=== PATIENT | female | born 1995 | race Caucasian/White ===

== ENCOUNTER 2016-07-21 01:49 | Inpatient (IN) | payer MEDICAID ==
[~2016-07-21] VITALS: Ht 165.1 cm; Wt 76.8 kg
[2016-07-21] MEDS ORDERED: PRENATAL COMPLE1 TAB PO (02:26)
[2016-07-21] MEDS ORDERED: TERAZOL 7 VAGIN45 GM VG (02:28)
[2016-07-21] MEDS ORDERED: FLAGYL250 MG PO (02:29)
[2016-07-21 03:01] LABS: HEMOGLOBIN 10.1 g/dL (12-16); MCH 25.1 pg (26.0-34.0); MCHC 30.6 g/dL (31.0-37.0); MCV 82.1 fL (80.0-100.0); MEAN PLATELET VOLUME 12.3 fL (7.4-10.4); RBC 4.02 10x6/uL (4.00-5.40); RDW 15.2 % (11.5-14.5); WBC 13.4 10x3/uL (4.8-10.8)
[2016-07-21 03:08] LABS: APPEARANCE CLEAR (CLEAR); BILIRUBIN NEGATIVE (NEGATIVE); COLOR YELLOW (YELLOW); GLUCOSE NEGATIVE (NEGATIVE); KETONE NEGATIVE (NEGATIVE); LEUKOCYTE ESTERASE NEGATIVE (NEGATIVE); NITRITE NEGATIVE (NEGATIVE); PROTEIN NEGATIVE (NEGATIVE); UROBILINOGEN NORMAL (NORMAL)
[2016-07-21 04:22] VITALS: BP 110/74; Ht 165.1 cm; Wt 76.8 kg
--- NOTE | 2016-07-21 19:11 | NUR ---
VISITOR AT BEDSIDE. PAIN MEDS GIVEN ORDERED. FUNDUS FIRM U/1 . LOCHIA RUBRA MOD. ICE CAP TO PERINEAL AREA. BREATH SOUNDS CLEAR. PT. STATES SHE HAS SLIGHT NUMBNESS IN LEGS ALTHOUGH GOOD ROM. IV OF LR NOTED IN RT HAND AREA INFUSING AT 50CC/HR. FOOD BROUGHT TO PATIENT FROM OUTSIDE. KEYANAI HAS BEEN IN ROOM TALKING WITH PT.
[2016-07-21 19:13] VITALS: BP 114/56
--- NOTE | 2016-07-21 19:20 | NUR ---
INFORMED PT. OF POC OF GETTING UP TO BATHROOM AND THEN CHANGING ROOM. PT. STATES UNDERSTANDING. ABLE TO LIFT BUTTOCKS OFF BED WITH BED FLAT AGAINST BED. DENIES ANY NUMBNESS AT THIS TIME. OFF JACKAROO AND IV SALINE LOCKED. PT. STOOD AT BEDSIDE WITH MINIMAL ASSISTANCE AND AMBULATED TO BATHROOM WITHOUT ASSISTANCE AND STEADY GAIT. VOIDED. C/O SOME RECTAL PRESSURE. REASSURED PT. THAT WAS NORMAL POST DELIVERY. SELF BRITTANY CARE INSTRUCTIONS GIVEN TO PT. AND PT. STATED VERBAL UNDERSTANDING AND GAVE DEMONSTATION ON USE. USE OF EPIFOAM, DERMOPLAST AND TUCKS DISCUSSED WITH PT. AND ASSISTED PT. WITH USE. PT STATED UNDERSTANDING TO ALL INSTRUCTIONS. TRANSFERRED TO [id number].
--- NOTE | 2016-07-21 19:30 | NUR ---
PT. ORIENTED TO ROOM, CALL LIGHT, BED CONTROLS, AND TEMP CONTROL. PT. RELATES THAT SHE IS PAIN FREE SINCE VOIDING. CALL LIGHT WITHIN REACH. SIDE RAILS UP X 2. PT. INQUIRING WHEN SHE CAN SHOWER. INFORMED THAT SHE COULD SHOWER HER NEXT TIME UP TO VOID BUT CAUTIONED THAT SHE SHOULD TAKE A TEPID SHOWER AND NOT A HOT SHOWER. REASONS GIVEN. PT. STATES UNDERSTANDING. LINENS FOR SHOWER PROVIDED. INFORMED PT. THAT THIS NURSE WOULD BE GLAD TO HELP HER WITH ANYTHING THAT SHE NEEDS AND JUST TO USE CALL LIGHT. PT. CHEERFUL AND STATES UNDERSTANDING. ICE WATER PROVIDED.
--- NOTE | 2016-07-21 20:34 | NUR ---
PT. REPORTS THAT SHE IS PAIN FREE. SITTING UP IN BED ON PHONE. DENIES ANY NEEDS.
--- NOTE | 2016-07-21 20:41 | NUR ---
ICE CAP GIVEN TO PT. AND ASSISTED ON PLACING ON PERINEAL AREA.
--- NOTE | 2016-07-21 21:38 | NUR ---
UP TO BATHROOM TO SHOWER. ASSISTED PT. TO ADJUST SHOWER TEMP. FAMILY IN ROOM HOLDING INFANT.
--- NOTE | 2016-07-21 22:08 | NUR ---
PT. SITTING ON SIDE OF BED. DENIES ANY DISCOMFORT. STATES SHE DID WELL WITH SHOWER. STATES THAT SHE HAS CHANGED INTO OWN CLOTHES AND ASKING IF THAT WAS OK. INFORMED PT. HER OWN CLOTHES WERE FINE. BABY IN ROOM FOR . DENIES ANY NEEDS. VISITORS AT BEDSIDE.
--- NOTE | 2016-07-21 23:40 | NUR ---
INFANT RETURNED TO [facility]. PT. STATES SHE DESIRES TO SLEEP. LIGHTS IN ROOM DIMMED PER PT. DENIES ANY PAIN. SIDE RAILS UP X 2. DENIES ANY NEEDS. PT. CHEERFUL.
--- NOTE | 2016-07-22 01:10 | NUR ---
LYING ON RT SIDE WITH RESPIRATIONS REGULAR.
--- NOTE | 2016-07-22 02:30 | NUR ---
PT. REQUESTED THIS NURSE TO ROOM TO WATCH WHILE SHE WENT TO THE BATHROOM. PT. UP TO BATHROOM AND VOIDED. SELF BRITTANY CARE DONE PER PT. DENIES ANY PAIN AT THIS TIME. STATES IS DOING WELL WITH .
--- NOTE | 2016-07-22 04:10 | NUR ---
PT. SITTING UP IN BED EATING. INFANT IN OPEN CRIB SLEEPING AT BEDSIDE. PT. REQUESTED INFANT RETURNED TO NBN. PT. DENIES ANY PAIN OR NEEDS AT THIS TIME.
[2016-07-22 06:15] LABS: HEMATOCRIT 28.6 % (36.0-48.0); HEMOGLOBIN 8.8 g/dL (12-16); MCHC 30.8 g/dL (31.0-37.0); MCV 81.3 fL (80.0-100.0); MEAN PLATELET VOLUME 11.7 fL (7.4-10.4); RBC 3.52 10x6/uL (4.00-5.40); RDW 15.2 % (11.5-14.5)
--- NOTE | 2016-07-22 06:16 | NUR ---
ROUNDS MADE. PT RESTING WITH EYES CLOSED. RESPIRATIONS REGULAR, NO S/S OF DISTRESS NOTED. PT LYING ON RIGHT SIDE. CL/PHONE WITHIN REACH. BED IN LOW POSITION WITH UPPER SIDE RAILS RAISED X2.
--- NOTE | 2016-07-22 06:20 | NUR ---
INFANT TO MOTHER FOR FEEDING PER N STAFF.
[2016-07-22 07:07] VITALS: BP 106/75
--- NOTE | 2016-07-22 07:16 | NUR ---
ASSUMED CARE OF THIS PATIENT. SHIFT ASSESSMENT COMLETED. NO REQUESTS AT THIS TIME. TO NURSERY FOR GROCERY SPECIALIST. CALL LIGHT IN REACH. TO CALL WHEN READY FOR SHOWER.
[2016-07-22 07:21] LABS: RAPID PLASMA REAGIN Non Reactive (Non Reactive)
--- NOTE | 2016-07-22 08:14 | NUR ---
LAYING ON RIGHT SIDE, PLANS NAP AT THIS TIME. IN NURSERY, CALL LIGHT IN REACH.
--- NOTE | 2016-07-22 09:25 | NUR ---
COMPLETED SHOWER PER SELF. ASKED IF SALINE LOCK CAN COME OUT. INSTRUCTED THAT WE NEED TO WAIT TIL MD REVIEWS H&H THIS MORNING, PRIOR TO DC. HBG 8.8/HCT 28.6/193. VERBALIZED UNDERSTANDING. NO OTHER REQUESTS AT THIS TIME.
--- NOTE | 2016-07-22 09:56 | NUR ---
REQUESTED MOTRIN FOR ABDOMINAL CRAMPING 10/18. MOTRIN 600 MG GIVEN PO. INSTRUCTED IF NOT HELPING THERE ARE ALSO OTHER PAIN MANAGEMENT OPTIONS. VERBALIZED UNDERSTANDING.
--- NOTE | 2016-07-22 10:53 | NUR ---
SITTING UP IN ROCKING CHAIR. DR RAMESH VISITED. DESIRED SALINE LOCK DC'D. REMOVED WITHOUT DIFFICULTY, TIP INTACT. 2/10 LOW ABDOMINAL CRAMPING AT THIS TIME. NO REQUESTS. ANTICIPATES DC HOME TOMORROW.
--- NOTE | 2016-07-22 12:41 | NUR ---
SITTING ON BED. VISITORS AND IN ROOM. DENIES NEEDING ANYTHING AT THIS TIME. INSTRUCTED TO CALL RN PRN. VERBALIZED UNDERSTANDING.
--- NOTE | 2016-07-22 14:14 | NUR ---
SITTING UP ON COUCH. VISITORS AND INFANT IN ROOM. FRESH ICE WATER GIVEN. NO REQUESTS OR COMPLAINTS AT THIS TIME.
--- NOTE | 2016-07-22 15:35 | NUR ---
SITTING UP IN BED . FAMILY VISITORS IN ROOM. DENIES NEEDING ANYTHING AT THIS TIME. TO CALL IF ANYTHING IS NEEDED. VERBALIZED UNDERSTANDING.
--- NOTE | 2016-07-22 17:18 | NUR ---
SITTING ON EDGE OF BED EATING DINNER. VISITORS AND IN ROOM. DENIES NEEDING ANYTHING. CALL LIGHT IN REACH.
--- NOTE | 2016-07-22 17:57 | NUR ---
DIRTY LINEN AND GARBAGE REMOVED FROM ROOM. 100% DINNER EATEN, TRAY REMOVED. NO ADDITIONAL REQUESTS. VISITORS AND INFANT IN ROOM. TO CALL IF ANYTHING IS NEEDED.
--- NOTE | 2016-07-22 19:11 | NUR ---
PT BREAST FEEDING INFANT AT THIS TIME. REQUESTS THAT ASSESSMENT BE COMPLETED WHEN SHE FINISHES NURSING INFANT. ICE WATER GIVEN TO PATIENT PER REQUEST. BED IN LOW POSITION, CL/PHONE WITHIN REACH. UPPER SIDE RAILS RAISED X2. DENIES ADDITIONAL NEEDS AT THIS TIME.
--- NOTE | 2016-07-22 19:56 | NUR ---
SHIFT ASSESSMENT COMPLETED. VSS. FUNDUS FIRM U2, SMALL AMT RUBRA LOCHIA TO PERIPAD, NO CLOTS NOTED. PT REPORTS THAT BLEEDING HAS BEEN "LIGHT" TODAY. BOWEL SOUNDS ACTIVE X4 QUADRANTS, REPORTS THAT SHE HAD A SMALL BM TODAY. PAIN 5-6/10, REQUESTED TO TAKE MOTRIN AND PERCOCET TOGETHER D/T INTERMITTENT ABD CRAMPING AND ACHING/BURNING TO PERINUM. PT VERBALIZED UNDERSTANDING OF TUX, DERMAPLAST, AND EPIFOAM. EDUCATED ON LOCHIA DURING PP PERIOD (AMT/DURATION/APPEARANCE), S/S OF INFECTION/COMPLICATIONS TO REPORT, AND IMPORTANCE OF HAVING NOTHING IN THE VAGINAL TRACT FOR 6 WEEKS OR UNTIL CLEARED BY MD. PT VERBALIZED UNDERSTANDING AND DENIED QUESTIONS. DENIES NEEDS AT THIS TIME. SITTING UP IN BED AT THIS TIME BONDING WITH . WILL CONT TO MONITOR AND ASSIST PRN.
[2016-07-22 20:01] VITALS: BP 128/67
--- NOTE | 2016-07-22 20:40 | NUR ---
PAIN REASSESSMENT COMPLETED. PT DENIES PAIN AT THIS TIME. MILK OF MAG GIVEN PER ORDERS. DISCUSSED MILK OF MAG USES AND SIDE EFFECTS, VERBALIZED UNDERSTANDING. PT STATES THAT SHE IS HUNGRY AND REQUESTED SNACK. SANDWICH TRAY AND CRANBERRY JUICE GIVEN PER REQUEST. DENIES ADDITIONAL NEEDS AT THIS TIME. INFANT IN ROOM IN CRIB.
--- NOTE | 2016-07-22 21:33 | NUR ---
PT REQUEST MORE TUX, EPIFOAM AND DERMAPLAST STATING THAT SHE IS ALMOST OF ALL OF THEM. GIVEN PER REQUEST AND PER ORDERS. REINFORCED INSTRUCTION TO ONLY USE WITH VOIDING AND 1-2 TUX PADS AND SMALL AMTS EPIFOAM AND DERMAPLAST, VERBALIZED UNDERSTANDING. PT CURRENTLY SITTING IN BED BREAST FEEDING . QUESTIONS REGARDING BREAST FEEDING ANSWERED. DENIES ADDITIONAL NEEDS AT THIS TIME. BED IN LOW POSITION WITH UPPER SIDE RAILS RAISED X2. CL/PHONE WITHIN REACH.
--- NOTE | 2016-07-22 22:52 | NUR ---
ROUNDS MADE. PT SLEEPING AT THIS TIME. RESPIRATIONS REGULAR, NO S/S OF DISTRESS NOTED. INFANT IN NBN AT THIS TIME. WILL CONT TO MONITOR. CL/PHONE WITHIN REACH. BED IN LOW POSITION WITH UPPER SIDE RAILS RAISED X2.
--- NOTE | 2016-07-23 00:01 | NUR ---
ROUNDS MADE. PT SITTING UP IN BED BONDING WITH INFANT. REPORTS THAT INFANT JUST FINISHED NURSING. DENIES NEEDS AT THIS TIME. PAIN 0/10. REPORTS THAT SHE HAS VOIDED X2 THIS SHIFT WITHOUT DIFFICULTY.
--- NOTE | 2016-07-23 02:01 | NUR ---
PT RESTING WITH EYES CLOSED. RESPIRATIONS REGULAR, NO S/S OF DISTRESS NOTED. IN CRIB AT BEDSIDED SLEEPING, RESPIRATIONS REGULAR, NO S/S OF ACUTE DISTRESS NOTED. BED IN LOW POSITION, CL/PHONE WITHIN PATIENT REACH. UPPER SIDE RAILS RAISED X2.
--- NOTE | 2016-07-23 04:08 | NUR ---
ROUNDS MADE. PT COMPLETING BREAST FEEDING OF . STATES THAT HE NURSED FOR 45 MINUTES. REQUESTED BE TAKEN TO NBN SO THAT SHE COULD TRY TO SLEEP UNTIL NEXT FEEDING. DENIES NEEDS AT THIS TIME. ICE WATER GIVEN. BED IN LOW POSITION WITH UPPER SIDE RAILS RAISED X2. CL/PHONE WITHIN REACH.
--- NOTE | 2016-07-23 06:10 | NUR ---
ROUNDS MADE. PT RESTING WITH EYES CLOSED. RESPIRATIONS REGULAR, NO S/S OF DISTRESS. BED IN LOW POSITION. CL/PHONE WITHIN REACH. UPPER SIDE RAILS X2.
--- NOTE | 2016-07-23 07:00 | NUR ---
ASSUMED CARE OF THIS PATIENT. SITTING UP IN BED . WILL COMPLETE SHIFT ASSESSMENT AFTER AND BREAKFAST. DENIES NEEDING ANYTHING AT THIS TIME. FRESH WATER GIVEN, SIDE RAILS UP X 2, CALL LIGHT IN REACH.
--- NOTE | 2016-07-23 07:33 | NUR ---
UP TO SHOWER AT THIS TIME. PARTIAL LINEN CHANGE COMPLETED. WITH NURSERY RN.
[2016-07-23 07:56] VITALS: BP 117/67
--- NOTE | 2016-07-23 08:00 | NUR ---
SHIFT ASSESSMENT COMPLETED. HAS SOME NIPPLE SORENESS, DISCUSSED CAUSES, RELIEF MEASURES. DECLINES MEDICATION AT THIS TIME. VERBAL AND WRITTEN INFORMATION GIVEN ON BREASTCARE, NIPPLE SORENESS AND TDAP. PT IS CONSIDERING TDAP PRIOR TO DC. NO CURRENT REQUESTS.
--- NOTE | 2016-07-23 09:40 | NUR ---
SITTING SEMI-FOWLERS POSITION. DESIRES TO REST, LIGHTS OFF PER PATIENT REQUEST. SLEEPING IN CRIB NEXT TO BED, RESP EVEN. SIDE RAILS UP X 2, CALL LIGHT IN REACH. TO CALL IF ANYTHING IS NEEDED. VERBALIZED UNDERSTANDING.
--- NOTE | 2016-07-23 10:50 | NUR ---
LAYING IN BED WITH LIGHTS ON LOW. RESTING, DENIES NEEDING ANYTHING. INFANT ASLEEP IN CRIB WITH PACIFIER IN MOUTH, RESP EVEN.
--- NOTE | 2016-07-23 11:10 | NUR ---
DR RAMESH VISITED. ANTICIPATE DC HOME WITH INFANT TODAY.
--- NOTE | 2016-07-23 11:44 | NUR ---
SITTING ON EDGE OF BED EATING LUNCH. VISITOR AND IN ROOM. DESIRES TDAP AFTER READING TDAP INFORMATION.
--- NOTE | 2016-07-23 12:44 | NUR ---
ADACEL 0.5 ML GIVEN IM I LEFT DELTOID. FINISHED LUNCH. VISITOR IN ROOM WITH . NO REQUESTS AT THIS TIME.
--- NOTE | 2016-07-23 14:52 | NUR ---
COMPLETED DISCHARGE EDUCATION INCLUDING ROUTINE PP CARE, PP DEPRESSION, S&S INFECTION, SITZ BATH, BREAST CARE, MEDICATION ADMINISTRATION AND FOLLOW-UP. ASKED ABOUT TYPE OF LACERATION SHE HAD. DISCUSSED DEGREES OF LACERATION WITH PT. VERBALIZED UNDERSTANDING. WILL DC HOME WHEN DISCHARGED.
--- NOTE | 2016-07-23 16:30 | NUR ---
FINAL DC TEACHING COMPLETED. HAS PRESCRIPTIONS, SITZ BATH AND WRITTEN INSTRUCTIONS. DENIES NEEDING ANYTHING. DRESSED AND READY TO GO. WAITING ON DC. WILL DC TO CAR VIA WHEELCHAIR WHEN INFANT DC'D. VISITORS IN ROOM.
--- NOTE | 2016-07-23 17:15 | NUR ---
DC'D TO CAR VIA WHEELCHAIR WITH FAMILY. IN CARSEAT. ALL BELONGS REMOVED FROM ROOM.
--- NOTE | 2016-08-30 07:19 | OP ---
PATIENT NAME: BRENDEN RESENDEZ MEDICAL RECORD: [id number] :96 LOCATION:[id number] ADMISSION DATE:07/21/16 SURGEON: RODRIGO RAMESH MD DATE OF OPERATION: 07/21/2016 Delivery Note Spontaneous vaginal delivery of male infant weighing 8 pounds 2 ounces, Apgars 4, 7 and 9 at 1, 5, and 10 minutes. Tight nuchal cord, required ligation prior to delivery of the thorax. Epidural anesthesia. Spontaneous delivery of intact-appearing placenta. Estimated blood loss 400 cc. Second degree midline laceration and first degree labial laceration repaired using 2-0 chromic suture and 800 mcg of Cytotec placed in the rectal vault to treat moderate uterine atony successfully. TRANSINT:[id number] Voice Confirmation ID: [id number] DOCUMENT ID: [id number] 08/15/2016, Edited for account number, dmm. RODRIGO RAMESH MD at [id number] CC: [id number] DICTATION DATE: 07/21/161715 SODA DIALYZER: 07/21/162000 DIS IN 07/23/16 [facility] [address] [place] [address]
== END 2016-07-23 17:15 | disposition home or self-care (01) | DRG 775 ==
LOC: D.LDO 01:49 → D.LD 02:02
PROVIDERS: Obstetrics & Gynecology; ADMIT Specialist
PROC: 10E0XZZ Delivery of Products of Conception, External Approach (ICD-10-PCS; principal; 2016-07-21)
PROC: 0KQM0ZZ Repair Perineum Muscle, Open Approach (ICD-10-PCS; 2016-07-21)
PROC: 10907ZC Drainage of Amniotic Fluid, Therapeutic from Products of Conception, Via Natural or Artificial Opening (ICD-10-PCS; 2016-07-21)
DX: O99.824 Streptococcus B carrier state complicating childbirth (principal); Z3A.39 39 weeks gestation of pregnancy; Z37.0 Single live birth; O75.89 Other specified complications of labor and delivery; R00.1 Bradycardia, unspecified; Z23 Encounter for immunization; O70.1 Second degree perineal laceration during delivery

== ENCOUNTER 2018-03-08 13:23 | Emergency (ER) | payer MEDICAID ==
[~2018-03-08] VITALS: Ht 165.1 cm; Wt 68.2 kg
[~2018-03-08 13:23] MED LIST: FLAGYL250 MG PO; PRENATAL COMPLE1 TAB PO; TERAZOL 7 VAGIN45 GM VG
[2018-03-08 13:26] VITALS: Ht 165.1 cm; Wt 68.2 kg
[2018-03-08 14:05] LABS: APPEARANCE HAZY (CLEAR); COLOR YELLOW (YELLOW)
[2018-03-08 14:06] LABS: BILIRUBIN NEGATIVE (NEGATIVE); GLUCOSE NEGATIVE (NEGATIVE); KETONE NEGATIVE (NEGATIVE); NITRITE NEGATIVE (NEGATIVE); PROTEIN TRACE mg/dL (NEGATIVE); UROBILINOGEN NORMAL (NORMAL)
[2018-03-08 14:07] LABS: BACTERIA MANY /hpf (NONE SEEN); EPITHELIAL CELLS 0-5 /hpf (0-5); RED CELLS - URINE 0-5 /hpf (0-5)
[2018-03-08 14:08] LABS: AMORPHOUS SEDIMENT <1+ /lpf (NONE SEEN); MUCUS <1+ /lpf (NONE SEEN)
[2018-03-08 14:11] LABS: BASOPHILS 0.2 % (0-2); HEMATOCRIT 41.6 % (36.0-48.0); HEMOGLOBIN 13.8 g/dL (12-16); IMMATURE GRANULOCYTES 0.2 % (0-5); LYMPHOCYTES 20.2 % (15-50); MCH 29.7 pg (26.0-34.0); MCHC 33.2 g/dL (31.0-37.0); MCV 89.7 fL (80.0-100.0); MEAN PLATELET VOLUME 11.5 fL (7.4-10.4); MONOCYTES 6.3 % (2-11); NEUTROPHILS 71.1 % (40-80); RBC 4.64 10x6/uL (4.00-5.40); RDW 12.8 % (11.5-14.5); WBC 11.9 10x3/uL (4.8-10.8)
[2018-03-08 14:12] LABS: PLATELET COUNT 242 10x3/uL (130-400)
[2018-03-08 14:16] LABS: ALKALINE PHOSPHATASE 74 U/L (46-116); ALT (SGPT) 19 U/L (10-68); AMYLASE - SERUM 43 U/L (25-115); BILIRUBIN - TOTAL 0.59 mg/dL (0.2-1.3); CALC OSMOLALITY 271 mosm/kg (275-300); CALCIUM 9.1 mg/dL (8.5-10.1); CARBON DIOXIDE 25.6 mmol/L (21.0-32.0); CHLORIDE - SERUM 103 mmol/L (98-107); CREATININE - SERUM 0.6 mg/dL (0.6-1.3); GLUCOSE 90 mg/dL (74-106); LIPASE 115 U/L (73-393); POTASSIUM - SERUM 3.4 mmol/L (3.5-5.1); PROTEIN - SERUM 8.2 g/dL (6.4-8.2); SODIUM 137 mmol/L (136-145); UREA NITROGEN 6 mg/dL (7-18); eGFR NON AFRICAN AMERICAN > 90 mL/min (90-120)
[2018-03-08 17:18] LABS: HCG URINE NEGATIVE (NEGATIVE)
[2018-03-08] MEDS ORDERED: VIBRAMYCIN 100100 MG PO (20:06)
[2018-03-08] MEDS ORDERED: ALBUTEROL SULF8.5 GM INH (20:06)
[2018-03-08 21:11] VITALS: BP 114/74
== END 2018-03-08 21:12 | disposition home or self-care (01) ==
LOC: D.ER 13:23
PROVIDERS: Family Medicine
DX: N39.0 Urinary tract infection, site not specified (principal); J18.9 Pneumonia, unspecified organism